=== PATIENT | male | born 1945 | race Hispanic/Latino ===

== ENCOUNTER 2017-08-03 13:23 | Emergency (ER) | payer MEDICARE, BC ==
--- NOTE | 2017-08-03 16:05 | RAD ---
EXAM: THREE VIEWS LUMBAR SPINE 08/03/17 HISTORY: Pain radiating from the back x4 days. COMPARISON: None. FINDINGS: Five lumbar type vertebral bodies. Mild loss of disc space height and osteophyte formation. No fract ure. 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 No fracture. POS: [facility]
[2017-08-03] MEDS ORDERED: Ketorolac Tromethamine 30 MG/ML VIAL ONE (16:34)
[2017-08-03 16:52] LABS: Bilirubin Negative (Negative); Blood, Urine Negative (Negative); Glucose, Urine (Dipstick) Negative (Negative); Ketone, Urine Negative (Negative); Nitrite Negative (Negative); Protein, Urine (Dipstick) Negative (Neg-Trace); Urobilinogen 0.2 mg/dL (0.2-1.0)
== END 2017-08-03 17:23 | disposition home or self-care (01) ==
LOC: ERS 13:23
DX: S39.012A Strain of muscle, fascia and tendon of lower back, initial encounter (principal); E11.9 Type 2 diabetes mellitus without complications; I10 Essential (primary) hypertension; E78.5 Hyperlipidemia, unspecified; X50.9XXA Other and unspecified overexertion or strenuous movements or postures, initial encounter
CPT/HCPCS: 72100; 81003; 96372; J1885

== ENCOUNTER 2017-08-10 15:11 | Outpatient (CLI) | payer MEDICARE, BC ==
--- NOTE | 2017-08-10 15:46 | SJPRAD ---
CHEST TWO VIEW: History: Chest pain. Comparison: Chest one view, 2007. FINDINGS: Linear opacities present in the left lower lobe, similar. Mild thickening of the right major fissure. No pneumothorax or effusion. Cardiac silhouette and mediastinal contours are similar. There is sclerosis of the right acromion suggesting rotator cuff disease. There is a suture anchor in the left humeral head. IMPRESSION: 1. Chronic changes. No acute intrathoracic abnormality. 2. Tortuosity of the distal thoracic aorta. POS: [facility]
== END 2017-08-10 15:12 | disposition home or self-care (01) ==
LOC: MWLC RAD 15:11
PROVIDERS: ATTEND Internal Medicine
DX: R07.1 Chest pain on breathing (principal); I77.1 Stricture of artery